=== PATIENT | male | born 1970 | race Two or more races ===

== ENCOUNTER 2019-12-29 00:04 | Emergency (ER) | payer SELFPAY ==
[~2019-12-29] VITALS: Ht 172.7 cm; Wt 91.6 kg
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
[2019-12-29 00:25] VITALS: BP 101/79
[2019-12-29 00:45] VITALS: BP 109/77
[2019-12-29 00:47] LABS: EOSINOPHILS % (AUTO) 1.1 % (0.0-3.0); HEMOGLOBIN 15.8 G/DL (14.2-18.0); LYMPHOCYTES % (AUTO) 43.1 % (20.0-45.0); MEAN CORPUSCULAR VOLUME 86 FL (80-99); MONOCYTES % (AUTO) 5.4 % (1.0-10.0); NEUTROPHILS % (AUTO) 49.3 % (45.0-75.0); PLATELET COUNT 254 K/UL (150-450); RED BLOOD COUNT 5.03 M/UL (4.70-6.10); RED CELL DISTRIBUTION WIDTH 10.9 % (11.6-14.8); WHITE BLOOD COUNT 10.7 K/UL (4.8-10.8)
[2019-12-29 00:58] LABS: ANION GAP 16 mmol/L (5-15); BLOOD UREA NITROGEN 10 mg/dL (7-18); CARBON DIOXIDE 21 MMOL/L (21-32); CHLORIDE 100 MMOL/L (98-107); CREATININE 0.7 MG/DL (0.55-1.30); POTASSIUM 2.9 MMOL/L (3.5-5.1); SODIUM 137 MMOL/L (136-145)
[2019-12-29 01:03] LABS: ALANINE AMINOTRANSFERASE 20 U/L (12-78); ALBUMIN 3.6 G/DL (3.4-5.0); ALBUMIN/GLOBULIN RATIO 1.4 (1.0-2.7); ALKALINE PHOSPHATASE 68 U/L (46-116); ASPARTATE AMINO TRANSFERASE 17 U/L (15-37); BILIRUBIN,TOTAL 0.2 MG/DL (0.2-1.0)
--- NOTE | 2019-12-29 01:54 | Diagnostic Imaging Report ---
EXAM: CT Head Without Intravenous Contrast CLINICAL HISTORY: AMS TECHNIQUE: Axial computed tomography images of the head/brain without intravenous contrast. CTDI is 53.40 mGy and DLP is 1152.40 mGy-cm. One or more of the following dose reduction techniques were used: automated exposure control, adjustment of the mA and/or kV according to patient size, use of iterative reconstruction technique. COMPARISON: No relevant prior studies available. FINDINGS: Brain: Unremarkable. No hemorrhage. No significant white matter disease. No edema. Ventricles: Unremarkable. No ventriculomegaly. Bones/joints: Unremarkable. No acute fracture. Soft tissues: Unremarkable. Sinuses: Unremarkable as visualized. No acute sinusitis. Mastoid air cells: Unremarkable as visualized. No mastoid effusion. IMPRESSION: No evidence of acute intracranial abnormality.
[2019-12-29 02:00] VITALS: BP 112/78
--- NOTE | 2019-12-29 02:15 | NUR ---
ED Nurse Note: Pt suddennly awake in bed, still makes non-comprehansible sounds and unclear but did ask for bathroom, pt assisted with urinal, specimen sent, pt is very unsteady and cant stand as he attempted during urinating, pt remains on continuous cardiac monitoring, no sz activity, tremors, or diaphoresis noted, will continue to closely monitor and provide care as needed as continuing to ask pt name and address.
--- NOTE | 2019-12-29 04:00 | NUR ---
ED Nurse Note: Pt is becoming more awake and alert, pt awakened and used bathroom, gait is slightly un-steady, pt re-oriented to place and time and event, pt does not recall, denies pain, no sob or labored breathing, v/s stable, will allow to rest and sober more before discharge, pt given clean clothing. refuses food or fluids.
[2019-12-29 05:00] VITALS: BP 112/78
--- NOTE | 2019-12-29 05:00 | NUR ---
ER DISCHARGE NOTE: Patient is cleared to be discharged per ERMD, pt is aox4, on room air, with stable vital signs. pt was given dc and prescription instructions, pt was able to verbalize understanding, pt id band and iv site removed without complications. pt is able to ambulate with steady gait. pt took all belongings.
== END 2019-12-29 05:00 | disposition home or self-care (01) ==
LOC: EDBD 00:04 → EMR 00:34 → EDBD 00:34 → EMR 05:00
DX: F10.129 Alcohol abuse with intoxication, unspecified (principal)
CPT/HCPCS: 36415; 70450; 80053; 80307; 84484; 85025; 96374; 99284; G0480; J2405; J8499